=== PATIENT | female | born 1960 | race Caucasian/White ===

== ENCOUNTER 2018-07-30 10:41 | Emergency (ER) | payer BC ==
[2018-07-30 11:47] LABS: HEMOGLOBIN 12.9 g/dL (12.5-16.0); MEAN CELL VOLUME 95 fl (78-100); MEAN CORPUSCULAR HEMOGLOBIN 31 pg (27-31); MEAN CORPUSCULAR HGB CONC 33 g/dL (33-37); MEAN PLATELET VOLUME 9.7 fl (7.4-10.4); PLATELET COUNT 263 K/mm3 (130-400); RED BLOOD COUNT 4.11 M/mm3 (4.10-5.30); RED CELL DISTRIBUTION WIDTH 12.3 % (11.5-14.5); WHITE BLOOD COUNT 7.9 K/mm3 (4.8-10.8)
[2018-07-30 12:00] LABS: LYMPHOCYTE 4 % (20-51); MONOCYTE 3 % (3-10); NEUTROPHILS 93 % (42-75)
[2018-07-30 12:03] LABS: PH-URINE 6.5 (5.0 - 8.0); URINE APPEARANCE CLEAR; URINE COLOR YELLOW; URINE GLUCOSE NEGATIVE (NEGATIVE); URINE KETONE NEGATIVE (NEGATIVE); URINE PROTEIN(semi-quant) TRACE mg/dL (NEGATIVE)
[2018-07-30 12:04] LABS: URINE BILIRUBIN NEGATIVE (NEGATIVE); URINE BLOOD 50 ery/uL (NEGATIVE); URINE LEUKOCYTE ESTERASE TRACE (NEGATIVE); URINE MUCUS PRESENT (NOT PRESENT); URINE NITRATE POSITIVE (NEGATIVE); URINE UROBILINOGEN NORMAL (NORMAL)
[2018-07-30] MEDS ORDERED: ELIQUIS5 MG PO (13:07)
[2018-07-30] MEDS ORDERED: METOPROLOL SUCC25 M1 PO (13:07)
[2018-07-30] MEDS ORDERED: MACROBID 100 M100 MG (13:10)
[2018-07-30] MEDS ORDERED: ENBREL50 MG/1 ML (13:10)
[2018-07-30] MEDS ORDERED: CEPHALEXIN500 M1 PO (15:03)
[2018-07-30] MEDS ORDERED: NORCO 325 MG-51 TA1 PO (15:03)
[2018-07-30 15:13] VITALS: BP 139/81
== END 2018-07-30 15:24 | disposition home or self-care (01) ==
LOC: ED 10:41
PROVIDERS: Family Medicine
DX: N39.0 Urinary tract infection, site not specified (principal); R51 Headache; R53.81 Other malaise; R00.0 Tachycardia, unspecified; I48.91 Unspecified atrial fibrillation; Z79.01 Long term (current) use of anticoagulants; M06.9 Rheumatoid arthritis, unspecified; Z87.19 Personal history of other diseases of the digestive system; Z79.899 Other long term (current) drug therapy
CPT/HCPCS: A4216; J0696; J7030

== ENCOUNTER → 2018-08-25 | Outpatient (CLI) | payer BC ==
[2018-07-30 15:13] VITALS: BP 139/81
[~2018-08-25] MED LIST: CEPHALEXIN500 M1 PO; ELIQUIS5 MG PO; ENBREL50 MG/1 ML; MACROBID 100 M100 MG; METOPROLOL SUCC25 M1 PO; NORCO 325 MG-51 TA1 PO
[2018-08-25 09:53] LABS: BASO # 0.1 (0.02-0.10); EOS # 0.3 (0.04-0.40); EOS % 4.1 % (1.0-5.0); HEMATOCRIT 40.5 % (37.0-47.0); HEMOGLOBIN 13.5 g/dL (12.5-16.0); LYMPH# 3.3 (1.50-4.00); MEAN CELL VOLUME 95 fl (78-100); MEAN CORPUSCULAR HEMOGLOBIN 32 pg (27-31); MEAN CORPUSCULAR HGB CONC 33 g/dL (33-37); MEAN PLATELET VOLUME 9.8 fl (7.4-10.4); MONO # 0.8 (0.20-0.80); NEU # 2.4 (1.40-6.50); PLATELET COUNT 296 K/mm3 (130-400); RED BLOOD COUNT 4.28 M/mm3 (4.10-5.30); RED CELL DISTRIBUTION WIDTH 12.7 % (11.5-14.5); WHITE BLOOD COUNT 6.8 K/mm3 (4.8-10.8)
[2018-08-25 10:08] LABS: ALBUMIN 4.5 g/dL (3.5-5.0); CALCIUM 10.2 mg/dL (8.4-10.2); POTASSIUM 4.5 mmol/L (3.6-5.0); TOTAL BILIRUBIN 0.5 mg/dL (0.2-1.3); TOTAL PROTEIN 7.8 g/dL (6.3-8.2)
[2018-08-25 11:02] LABS: ERYTHROCYTE SEDIMENTATION RATE 13 mm/hr (0-30)
[2018-08-26 23:03] LABS: C-REACTIVE PROTEIN XXX
== END ==
LOC: LAB 09:29
PROVIDERS: Internal Medicine
DX: Z00.00 Encounter for general adult medical examination without abnormal findings (principal); M06.9 Rheumatoid arthritis, unspecified; I48.91 Unspecified atrial fibrillation

== ENCOUNTER → 2018-09-01 | Outpatient (CLI) | payer BC ==
[2018-09-05 14:39] LABS: ANTI-CYC CITRULLINATED PEPT AB >250.0 U (())
== END ==
LOC: LAB 14:55
PROVIDERS: Internal Medicine
DX: M06.9 Rheumatoid arthritis, unspecified (principal)

== ENCOUNTER → 2018-09-08 | Outpatient (CLI) | payer BC ==
[2018-09-08 10:11] LABS: ALBUMIN 4.4 g/dL (3.5-5.0); CALCIUM 10.3 mg/dL (8.4-10.2); POTASSIUM 4.3 mmol/L (3.6-5.0); TOTAL BILIRUBIN 0.6 mg/dL (0.2-1.3); TOTAL PROTEIN 7.6 g/dL (6.3-8.2)
== END ==
LOC: LAB 09:43
PROVIDERS: Internal Medicine Cardiovascular Disease
DX: I10 Essential (primary) hypertension (principal); Z91.89 Other specified personal risk factors, not elsewhere classified

== ENCOUNTER 2018-11-13 00:58 | Emergency (ER) | payer BC ==
[~2018-11-13] VITALS: Ht 170.2 cm; Wt 84.1 kg
[2018-11-13] MEDS ORDERED: XARELTO20 MG PO (01:10)
[2018-11-13] MEDS ORDERED: THE MEDICINE SH20 M1 PO (01:11)
[2018-11-13] MEDS ORDERED: LOW DOSE ASPIRI81 M1 PO (01:12)
[2018-11-13] MEDS ORDERED: ENBREL50 MG/ML SQ (01:33)
[2018-11-13 02:45] LABS: EOS # 0.2 (0.04-0.40); EOS % 1.9 % (1.0-5.0); HEMATOCRIT 37.7 % (37.0-47.0); HEMOGLOBIN 12.4 g/dL (12.5-16.0); LYMPH# 2.2 (1.50-4.00); MEAN CELL VOLUME 94 fl (78-100); MEAN CORPUSCULAR HEMOGLOBIN 31 pg (27-31); MEAN CORPUSCULAR HGB CONC 33 g/dL (33-37); MEAN PLATELET VOLUME 9.7 fl (7.4-10.4); MONO # 1.2 (0.20-0.80); NEU # 6.6 (1.40-6.50); PLATELET COUNT 274 K/mm3 (130-400); RED BLOOD COUNT 4.01 M/mm3 (4.10-5.30); RED CELL DISTRIBUTION WIDTH 12.8 % (11.5-14.5); WHITE BLOOD COUNT 10.2 K/mm3 (4.8-10.8)
[2018-11-13 02:54] LABS: CALCIUM 9.7 mg/dL (8.4-10.2)
[2018-11-13 03:00] LABS: PH-URINE 5.5 (5.0 - 8.0); URINE APPEARANCE HAZY; URINE BILIRUBIN NEGATIVE (NEGATIVE); URINE BLOOD 50 ery/uL (NEGATIVE); URINE COLOR YELLOW; URINE GLUCOSE NEGATIVE (NEGATIVE); URINE KETONE NEGATIVE (NEGATIVE); URINE LEUKOCYTE ESTERASE TRACE (NEGATIVE); URINE NITRATE NEGATIVE (NEGATIVE); URINE PROTEIN(semi-quant) NEGATIVE (NEGATIVE); URINE UROBILINOGEN NORMAL (NORMAL); URINE WBC 0-1 /hpf (0-3)
[2018-11-13 03:01] LABS: URINE MUCUS PRESENT (NOT PRESENT)
[2018-11-13 03:39] LABS: ERYTHROCYTE SEDIMENTATION RATE 20 mm/hr (0-30)
[2018-11-13] MEDS ORDERED: PERCOCET 325 MG1 TA2 PO (04:05)
[2018-11-13] MEDS ORDERED: WALKER (04:05)
[2018-11-13 04:20] VITALS: BP 111/69
== END 2018-11-13 04:20 | disposition home or self-care (01) ==
LOC: ED 00:58
PROVIDERS: Family Medicine
DX: M79.671 Pain in right foot (principal); M06.9 Rheumatoid arthritis, unspecified; I48.91 Unspecified atrial fibrillation; Z79.01 Long term (current) use of anticoagulants

== ENCOUNTER → 2018-11-14 | Outpatient (CLI) | payer BC ==
[2018-11-13 04:20] VITALS: BP 111/69
[~2018-11-14] MED LIST changes: +ENBREL50 MG/ML SQ; +LOW DOSE ASPIRI81 M1 PO; +PERCOCET 325 MG1 TA2 PO; +THE MEDICINE SH20 M1 PO; +WALKER; +XARELTO20 MG PO
== END ==
LOC: RAD 08:29
DX: M16.11 Unilateral primary osteoarthritis, right hip (principal)

== ENCOUNTER → 2019-08-24 | Outpatient (CLI) | payer BC ==
[2019-08-24 09:05] LABS: ALBUMIN 4.3 g/dL (3.5-5.0); POTASSIUM 4.2 mmol/L (3.5-5.1)
[2019-08-24 09:06] LABS: CALCIUM 10.1 mg/dL (8.3-10.5)
[2019-08-24 09:07] LABS: EOS # 0.2 (0.04-0.40); EOS % 3.4 % (1.0-5.0); HEMATOCRIT 40.6 % (37.0-47.0); HEMOGLOBIN 13.2 g/dL (12.5-16.0); LYMPH# 2.4 (1.50-4.00); MEAN CELL VOLUME 100 fl (78-100); MEAN CORPUSCULAR HEMOGLOBIN 33 pg (27-31); MEAN CORPUSCULAR HGB CONC 33 g/dL (33-37); MEAN PLATELET VOLUME 9.9 fl (7.4-10.4); MONO # 0.6 (0.20-0.80); NEU # 1.8 (1.40-6.50); PLATELET COUNT 312 K/mm3 (130-400); RED BLOOD COUNT 4.06 M/mm3 (4.10-5.30); RED CELL DISTRIBUTION WIDTH 13.6 % (11.5-14.5); TOTAL PROTEIN 7.2 g/dL (6.4-8.3)
[2019-08-24 09:09] LABS: TOTAL BILIRUBIN 0.4 mg/dL (0.2-1.2)
[2019-08-24 09:14] LABS: MAGNESIUM 1.8 mg/dL (1.60-2.60)
[2019-08-24 10:37] LABS: ERYTHROCYTE SEDIMENTATION RATE 20 mm/hr (0-30)
== END ==
LOC: AMSURD 08:33
PROVIDERS: Internal Medicine
DX: Z00.00 Encounter for general adult medical examination without abnormal findings (principal); Z12.11 Encounter for screening for malignant neoplasm of colon; M06.9 Rheumatoid arthritis, unspecified; I48.91 Unspecified atrial fibrillation

== ENCOUNTER → 2019-10-11 | Day surgery (SDC) | payer BC | LOC: MSO 07:27 | DX: Z12.11 Encounter for screening for malignant neoplasm of colon (principal); R19.7 Diarrhea, unspecified; K21.9 Gastro-esophageal reflux disease without esophagitis; G47.33 Obstructive sleep apnea (adult) (pediatric); I48.91 Unspecified atrial fibrillation; M19.90 Unspecified osteoarthritis, unspecified site; Z88.1 Allergy status to other antibiotic agents; Z88.0 Allergy status to penicillin; Z79.82 Long term (current) use of aspirin; Z90.710 Acquired absence of both cervix and uterus; Z87.891 Personal history of nicotine dependence; Z90.49 Acquired absence of other specified parts of digestive tract; Z86.010 Personal history of colon polyps | CPT/HCPCS: 00813; J2704; J3010; J7120 ==

== ENCOUNTER → 2019-12-07 | Outpatient (CLI) | payer BC ==
[2019-12-07 12:15] LABS: EOS # 0.2 (0.04-0.40); EOS % 3.5 % (1.0-5.0); HEMATOCRIT 42.3 % (37.0-47.0); HEMOGLOBIN 13.6 g/dL (12.5-16.0); LYMPH# 2.5 (1.50-4.00); MEAN CELL VOLUME 99 fl (78-100); MEAN CORPUSCULAR HEMOGLOBIN 32 pg (27-31); MEAN CORPUSCULAR HGB CONC 32 g/dL (33-37); MEAN PLATELET VOLUME 9.6 fl (7.4-10.4); MONO # 0.7 (0.20-0.80); NEU # 2.8 (1.40-6.50); PLATELET COUNT 294 K/mm3 (130-400); RED BLOOD COUNT 4.26 M/mm3 (4.10-5.30); RED CELL DISTRIBUTION WIDTH 13.4 % (11.5-14.5); WHITE BLOOD COUNT 6.3 K/mm3 (4.8-10.8)
[2019-12-07 12:17] LABS: ALBUMIN 4.3 g/dL (3.5-5.0); POTASSIUM 4.3 mmol/L (3.5-5.1)
[2019-12-07 12:18] LABS: CALCIUM 9.8 mg/dL (8.3-10.5)
[2019-12-07 12:19] LABS: TOTAL PROTEIN 7.5 g/dL (6.4-8.3)
[2019-12-07 12:21] LABS: TOTAL BILIRUBIN 0.4 mg/dL (0.2-1.2)
[2019-12-07 13:25] LABS: ERYTHROCYTE SEDIMENTATION RATE 13 mm/hr (0-30)
[2019-12-08 15:33] LABS: ANA SCREEN with REFLEX Negative (Negative)
== END ==
LOC: LAB 10:44
PROVIDERS: Student in an Organized Health Care Education/Training Program
DX: M06.9 Rheumatoid arthritis, unspecified (principal); K90.9 Intestinal malabsorption, unspecified

== ENCOUNTER 2020-02-05 10:00 | Outpatient (RCR) | payer BC | END 2020-02-05 10:30 | disposition home or self-care (01) | LOC: PT 10:00 | DX: M70.62 Trochanteric bursitis, left hip (principal) ==

== ENCOUNTER → 2020-03-19 | Outpatient (CLI) | payer BC | LOC: MAMMO 13:36 | DX: Z12.31 Encounter for screening mammogram for malignant neoplasm of breast (principal) ==

== ENCOUNTER → 2020-06-11 | Outpatient (CLI) | payer BC ==
[2020-06-11 13:23] LABS: EOS # 0.2 (0.04-0.40); EOS % 2.3 % (1.0-5.0); HEMATOCRIT 40.3 % (37.0-47.0); HEMOGLOBIN 13.1 g/dL (12.5-16.0); LYMPH# 3.1 (1.50-4.00); MEAN CELL VOLUME 101 fl (78-100); MEAN CORPUSCULAR HEMOGLOBIN 33 pg (27-31); MEAN CORPUSCULAR HGB CONC 33 g/dL (33-37); MEAN PLATELET VOLUME 9.6 fl (7.4-10.4); MONO # 0.8 (0.20-0.80); NEU # 2.9 (1.40-6.50); PLATELET COUNT 291 K/mm3 (130-400); RED BLOOD COUNT 3.99 M/mm3 (4.10-5.30); RED CELL DISTRIBUTION WIDTH 13.3 % (11.5-14.5)
[2020-06-11 13:29] LABS: ALBUMIN 4.2 g/dL (3.5-5.0); POTASSIUM 3.9 mmol/L (3.5-5.1)
[2020-06-11 13:30] LABS: CALCIUM 9.4 mg/dL (8.3-10.5)
[2020-06-11 13:33] LABS: TOTAL BILIRUBIN 0.4 mg/dL (0.2-1.2)
[2020-06-11 14:17] LABS: ERYTHROCYTE SEDIMENTATION RATE 24 mm/hr (0-30)
== END ==
LOC: LAB 13:08
PROVIDERS: Student in an Organized Health Care Education/Training Program
DX: M05.741 Rheumatoid arthritis with rheumatoid factor of right hand without organ or systems involvement (principal); M05.742 Rheumatoid arthritis with rheumatoid factor of left hand without organ or systems involvement; Z79.899 Other long term (current) drug therapy

== ENCOUNTER → 2020-06-18 | Outpatient (CLI) | payer BC | LOC: LAB 14:23 | DX: J02.9 Acute pharyngitis, unspecified (principal); Z20.828 Contact with and (suspected) exposure to other viral communicable diseases ==

== ENCOUNTER → 2020-10-06 | Outpatient (CLI) | payer BC ==
[2020-10-06 09:54] LABS: BASO # 0.1 (0.02-0.10); EOS # 0.2 (0.04-0.40); EOS % 3.6 % (1.0-5.0); HEMATOCRIT 40.6 % (37.0-47.0); HEMOGLOBIN 13.1 g/dL (12.5-16.0); LYMPH# 2.2 (1.50-4.00); MEAN CELL VOLUME 101 fl (78-100); MEAN CORPUSCULAR HEMOGLOBIN 33 pg (27-31); MEAN CORPUSCULAR HGB CONC 32 g/dL (33-37); MONO # 0.5 (0.20-0.80); NEU # 1.9 (1.40-6.50); PLATELET COUNT 295 K/mm3 (130-400); RED BLOOD COUNT 4.03 M/mm3 (4.10-5.30); RED CELL DISTRIBUTION WIDTH 12.9 % (11.5-14.5); WHITE BLOOD COUNT 4.8 K/mm3 (4.8-10.8)
[2020-10-06 09:59] LABS: ALBUMIN 4.1 g/dL (3.5-5.0); POTASSIUM 3.8 mmol/L (3.5-5.1)
[2020-10-06 10:00] LABS: CALCIUM 9.4 mg/dL (8.3-10.5)
[2020-10-06 10:01] LABS: TOTAL PROTEIN 7.2 g/dL (6.4-8.3)
[2020-10-06 10:03] LABS: TOTAL BILIRUBIN 0.5 mg/dL (0.2-1.2)
[2020-10-06 11:08] LABS: ERYTHROCYTE SEDIMENTATION RATE 17 mm/hr (0-30)
[2020-10-06 11:35] LABS: URINE APPEARANCE HAZY; URINE COLOR YELLOW
[2020-10-06 11:36] LABS: URINE BILIRUBIN NEGATIVE (NEGATIVE); URINE BLOOD 50 ery/uL (NEGATIVE); URINE GLUCOSE NEGATIVE (NEGATIVE); URINE KETONE NEGATIVE (NEGATIVE); URINE LEUKOCYTE ESTERASE NEGATIVE (NEGATIVE); URINE MUCUS PRESENT (NOT PRESENT); URINE NITRATE NEGATIVE (NEGATIVE); URINE PROTEIN(semi-quant) 1+ mg/dL (NEGATIVE); URINE UROBILINOGEN NORMAL (NORMAL); URINE WBC 0-1 /hpf (0-3)
[2020-10-09 16:22] LABS: T3 TOTAL AMS
== END ==
LOC: LAB 09:21
PROVIDERS: Internal Medicine
DX: Z00.00 Encounter for general adult medical examination without abnormal findings (principal)

== ENCOUNTER → 2021-03-12 | Outpatient (CLI) | payer BC ==
[2021-03-12 10:49] LABS: BASO # 0.04 (0.02-0.10); EOS # 0.16 (0.04-0.40); EOS % 2.9 % (1.0-5.0); HEMATOCRIT 43.2 % (37.0-47.0); HEMOGLOBIN 14.2 g/dL (12.5-16.0); LYMPH# 2.51 (1.50-4.00); MEAN CELL VOLUME 101 fl (78-100); MEAN CORPUSCULAR HEMOGLOBIN 33 pg (27-31); MEAN CORPUSCULAR HGB CONC 33 g/dL (33-37); MEAN PLATELET VOLUME 9.5 fl (7.4-10.4); MONO # 0.53 (0.20-0.80); NEU # 2.21 (1.40-6.50); PLATELET COUNT 252 K/mm3 (130-400); RED BLOOD COUNT 4.28 M/mm3 (4.10-5.30); RED CELL DISTRIBUTION WIDTH 13.2 % (11.5-14.5); WHITE BLOOD COUNT 5.5 K/mm3 (4.8-10.8)
[2021-03-12 11:22] LABS: PROTHROMBIN TIME 9.3 SECONDS (9.0-12.0)
[2021-03-12 13:35] LABS: POTASSIUM 4.6 mmol/L (3.5-5.1)
[2021-03-12 13:36] LABS: CALCIUM 9.8 mg/dL (8.3-10.5)
[2021-03-12 13:39] LABS: TOTAL BILIRUBIN 0.5 mg/dL (0.2-1.2)
[2021-03-12 14:15] LABS: ALBUMIN 4.2 g/dL (3.5-5.0)
[2021-03-12 14:17] LABS: TOTAL PROTEIN 7.4 g/dL (6.4-8.3)
[2021-03-12 14:24] LABS: MAGNESIUM 1.72 mg/dL (1.60-2.60)
== END ==
LOC: RAD 10:21 → LAB 10:21
PROVIDERS: Internal Medicine
DX: Z01.818 Encounter for other preprocedural examination (principal); R00.1 Bradycardia, unspecified

== ENCOUNTER → 2021-03-24 | Outpatient (CLI) | payer BC | LOC: MAMMO 13:40 | DX: Z12.31 Encounter for screening mammogram for malignant neoplasm of breast (principal); N64.89 Other specified disorders of breast ==

== ENCOUNTER → 2021-04-02 | Outpatient (CLI) | payer BC | LOC: MAMMO 12:15 | DX: N60.01 Solitary cyst of right breast (principal); N64.89 Other specified disorders of breast ==

== ENCOUNTER → 2021-04-25 | Outpatient (CLI) | payer BC | LOC: LAB 13:53 | DX: N30.01 Acute cystitis with hematuria (principal) ==

== ENCOUNTER → 2021-04-28 | Outpatient (CLI) | payer BC ==
[2021-04-28 11:52] LABS: BASO # 0.04 (0.02-0.10); EOS # 0.22 (0.04-0.40); EOS % 3.9 % (1.0-5.0); HEMATOCRIT 40.6 % (37.0-47.0); HEMOGLOBIN 13.3 g/dL (12.5-16.0); LYMPH# 2.27 (1.50-4.00); MEAN CELL VOLUME 100 fl (78-100); MEAN CORPUSCULAR HEMOGLOBIN 33 pg (27-31); MEAN CORPUSCULAR HGB CONC 33 g/dL (33-37); MEAN PLATELET VOLUME 9.6 fl (7.4-10.4); MONO # 0.68 (0.20-0.80); NEU # 2.42 (1.40-6.50); PLATELET COUNT 297 K/mm3 (130-400); RED BLOOD COUNT 4.07 M/mm3 (4.10-5.30); RED CELL DISTRIBUTION WIDTH 12.9 % (11.5-14.5); WHITE BLOOD COUNT 5.7 K/mm3 (4.8-10.8)
[2021-04-28 12:14] LABS: POTASSIUM 3.9 mmol/L (3.5-5.1)
[2021-04-28 12:15] LABS: CALCIUM 10.3 mg/dL (8.3-10.5)
[2021-04-28 12:16] LABS: TOTAL PROTEIN 7.4 g/dL (6.4-8.3)
[2021-04-28 12:18] LABS: TOTAL BILIRUBIN 0.3 mg/dL (0.2-1.2)
[2021-04-28 13:08] LABS: ERYTHROCYTE SEDIMENTATION RATE 19 mm/hr (0-30)
== END ==
LOC: RAD 11:18 → LAB 11:18
PROVIDERS: Student in an Organized Health Care Education/Training Program
DX: M05.741 Rheumatoid arthritis with rheumatoid factor of right hand without organ or systems involvement (principal); M05.742 Rheumatoid arthritis with rheumatoid factor of left hand without organ or systems involvement; E55.9 Vitamin D deficiency, unspecified; M77.9 Enthesopathy, unspecified; Z79.899 Other long term (current) drug therapy

== ENCOUNTER → 2021-08-11 | Outpatient (CLI) | payer BC ==
[2021-08-11 13:24] LABS: BASO # 0.04 K/mm3 (0.02-0.10); EOS # 0.13 K/mm3 (0.04-0.40); HEMATOCRIT 42.6 % (37.0-47.0); HEMOGLOBIN 14.1 g/dL (12.5-16.0); LYMPH# 2.87 K/mm3 (1.50-4.00); MEAN CELL VOLUME 98 fl (78-100); MEAN CORPUSCULAR HEMOGLOBIN 33 pg (27-31); MEAN CORPUSCULAR HGB CONC 33 g/dL (33-37); MEAN PLATELET VOLUME 9.7 fl (7.4-10.4); MONO # 0.63 K/mm3 (0.20-0.80); NEU # 2.89 K/mm3 (1.40-6.50); PLATELET COUNT 297 K/mm3 (130-400); RED BLOOD COUNT 4.33 M/mm3 (4.10-5.30); RED CELL DISTRIBUTION WIDTH 12.9 % (11.5-14.5); WHITE BLOOD COUNT 6.6 K/mm3 (4.8-10.8)
[2021-08-11 13:27] LABS: ALBUMIN 4.2 g/dL (3.5-5.0)
[2021-08-11 13:29] LABS: CALCIUM 10.2 mg/dL (8.3-10.5)
[2021-08-11 13:30] LABS: TOTAL PROTEIN 7.4 g/dL (6.4-8.3)
[2021-08-11 13:32] LABS: TOTAL BILIRUBIN 0.4 mg/dL (0.2-1.2)
[2021-08-11 14:20] LABS: ERYTHROCYTE SEDIMENTATION RATE 17 mm/hr (0-30)
== END ==
LOC: LAB 12:56
PROVIDERS: Nurse Practitioner Family
DX: R22.31 Localized swelling, mass and lump, right upper limb (principal)

== ENCOUNTER 2021-09-03 12:57 | Outpatient (RCR) | payer BC | END 2021-09-21 | disposition home or self-care (01) | LOC: PT | DX: M76.61 Achilles tendinitis, right leg (principal); M76.62 Achilles tendinitis, left leg ==

== ENCOUNTER → 2021-10-08 | Outpatient (CLI) | payer BC | LOC: MAMMO 08:30 | DX: N60.01 Solitary cyst of right breast (principal) ==

== ENCOUNTER → 2021-10-30 | Outpatient (CLI) | payer BC ==
[2021-10-30 10:18] LABS: BASO # 0.05 K/mm3 (0.02-0.10); EOS # 0.19 K/mm3 (0.04-0.40); EOS % 3.3 % (1.0-5.0); HEMATOCRIT 43.7 % (37.0-47.0); HEMOGLOBIN 14.3 g/dL (12.5-16.0); LYMPH# 2.69 K/mm3 (1.50-4.00); MEAN CELL VOLUME 97 fl (78-100); MEAN CORPUSCULAR HEMOGLOBIN 32 pg (27-31); MEAN CORPUSCULAR HGB CONC 33 g/dL (33-37); MEAN PLATELET VOLUME 9.5 fl (7.4-10.4); NEU # 2.27 K/mm3 (1.40-6.50); PLATELET COUNT 289 K/mm3 (130-400); RED BLOOD COUNT 4.53 M/mm3 (4.10-5.30); WHITE BLOOD COUNT 5.8 K/mm3 (4.8-10.8)
[2021-10-30 10:29] LABS: ALBUMIN 4.1 g/dL (3.4-4.8)
[2021-10-30 10:30] LABS: POTASSIUM 4.3 mmol/L (3.5-5.1)
[2021-10-30 10:32] LABS: TOTAL PROTEIN 7.4 g/dL (6.2-8.1)
[2021-10-30 10:34] LABS: TOTAL BILIRUBIN 0.4 mg/dL (0.2-1.2)
[2021-10-30 11:53] LABS: ERYTHROCYTE SEDIMENTATION RATE 30 mm/hr (0-30)
== END ==
LOC: LAB 09:59
PROVIDERS: Student in an Organized Health Care Education/Training Program
DX: E55.9 Vitamin D deficiency, unspecified (principal); Z79.899 Other long term (current) drug therapy

== ENCOUNTER → 2022-06-16 | Outpatient (CLI) | payer BC ==
[2022-06-16 10:01] LABS: BASO # 0.03 K/mm3 (0.02-0.10); EOS # 0.23 K/mm3 (0.04-0.40); EOS % 4.6 % (1.0-5.0); HEMATOCRIT 42.4 % (37.0-47.0); HEMOGLOBIN 14.1 g/dL (12.5-16.0); LYMPH# 2.23 K/mm3 (1.50-4.00); MEAN CELL VOLUME 100 fl (78-100); MEAN CORPUSCULAR HEMOGLOBIN 33 pg (27-31); MEAN CORPUSCULAR HGB CONC 33 g/dL (33-37); MEAN PLATELET VOLUME 9.7 fl (7.4-10.4); MONO # 0.75 K/mm3 (0.20-0.80); NEU # 1.72 K/mm3 (1.40-6.50); PLATELET COUNT 255 K/mm3 (130-400); RED BLOOD COUNT 4.23 M/mm3 (4.10-5.30); RED CELL DISTRIBUTION WIDTH 13.1 % (11.5-14.5)
[2022-06-16 10:05] LABS: ALBUMIN 4.1 g/dL (3.4-4.8); POTASSIUM 4.3 mmol/L (3.5-5.1)
[2022-06-16 10:06] LABS: CALCIUM 9.7 mg/dL (8.3-10.5)
[2022-06-16 10:07] LABS: TOTAL PROTEIN 7.2 g/dL (6.2-8.1)
[2022-06-16 10:09] LABS: TOTAL BILIRUBIN 0.6 mg/dL (0.2-1.2)
== END ==
LOC: MAMMO 09:34
PROVIDERS: Internal Medicine
DX: Z12.31 Encounter for screening mammogram for malignant neoplasm of breast (principal); N64.89 Other specified disorders of breast

== ENCOUNTER → 2022-06-24 | Outpatient (CLI) | payer BC ==
[2022-06-24 13:01] LABS: URINE APPEARANCE HAZY; URINE BILIRUBIN NEGATIVE (NEGATIVE); URINE BLOOD TRACE (NEGATIVE); URINE COLOR YELLOW; URINE GLUCOSE NEGATIVE (NEGATIVE); URINE KETONE NEGATIVE (NEGATIVE); URINE LEUKOCYTE ESTERASE 1+ (NEGATIVE); URINE NITRATE NEGATIVE (NEGATIVE); URINE PROTEIN(semi-quant) TRACE (NEGATIVE); URINE UROBILINOGEN NORMAL (NORMAL)
== END ==
LOC: LAB 11:24
PROVIDERS: Internal Medicine
DX: N39.0 Urinary tract infection, site not specified (principal)

== ENCOUNTER → 2022-06-24 | Outpatient (CLI) | payer BC | LOC: MAMMO 11:20 | DX: R92.8 Other abnormal and inconclusive findings on diagnostic imaging of breast (principal); Z95.818 Presence of other cardiac implants and grafts ==

== ENCOUNTER → 2023-06-21 | Outpatient (CLI) | payer BC | LOC: MAMMO 09:28 | DX: Z12.31 Encounter for screening mammogram for malignant neoplasm of breast (principal) ==

== ENCOUNTER → 2024-01-13 | Outpatient (CLI) | payer BC ==
[~2024-01-13] MED LIST changes: +Gadoterate 20 ML VIAL IV ONE; +NS 100 ML IV ONE
== END ==
LOC: RAD 12:15
DX: M76.61 Achilles tendinitis, right leg (principal); M06.9 Rheumatoid arthritis, unspecified
CPT/HCPCS: A9575

== ENCOUNTER → 2024-01-19 | Outpatient (CLI) | payer BC ==
[~2024-01-19] MED LIST changes: -Gadoterate 20 ML VIAL IV ONE; -NS 100 ML IV ONE
[2024-03-08 10:16] LABS: ALBUMIN 4.2 g/dL (3.4-4.8); CALCIUM 10.3 mg/dL (8.3-10.5); MAGNESIUM 1.63 mg/dL (1.60-2.60); TOTAL BILIRUBIN 0.4 mg/dL (0.2-1.2); TOTAL PROTEIN 7.7 g/dL (6.2-8.1)
[2024-03-08 10:41] LABS: BASO # 0.02 K/mm3 (0.02-0.10); EOS # 0.18 K/mm3 (0.04-0.40); EOS % 2.8 % (1.0-5.0); HEMATOCRIT 45.9 % (37.0-47.0); LYMPH# 2.92 K/mm3 (1.50-4.00); MEAN CELL VOLUME 99 fl (78-100); MEAN CORPUSCULAR HEMOGLOBIN 33 pg (27-31); MEAN CORPUSCULAR HGB CONC 33 g/dL (33-37); MEAN PLATELET VOLUME 9.6 fl (7.4-10.4); MONO # 0.71 K/mm3 (0.20-0.80); NEU # 2.66 K/mm3 (1.40-6.50); PLATELET COUNT 264 K/mm3 (130-400); RED BLOOD COUNT 4.62 M/mm3 (4.10-5.30); RED CELL DISTRIBUTION WIDTH 12.3 % (11.5-14.5); WHITE BLOOD COUNT 6.5 K/mm3 (4.8-10.8)
== END ==
LOC: LAB 14:44
PROVIDERS: Internal Medicine
DX: I48.91 Unspecified atrial fibrillation (principal); K90.9 Intestinal malabsorption, unspecified; M06.9 Rheumatoid arthritis, unspecified; E78.2 Mixed hyperlipidemia; R73.9 Hyperglycemia, unspecified

== ENCOUNTER → 2024-02-02 | Outpatient (CLI) | payer BC | LOC: LAB 09:50 | DX: N39.0 Urinary tract infection, site not specified (principal) ==

== ENCOUNTER → 2024-03-06 | Outpatient (CLI) | payer BC ==
[2024-03-06 18:40] LABS: URINE APPEARANCE SLIGHTLY CLOUDY (CLEAR); URINE BILIRUBIN NEGATIVE (NEGATIVE); URINE BLOOD 2+ (NEGATIVE); URINE COLOR YELLOW (YELLOW); URINE GLUCOSE NEGATIVE (NEGATIVE); URINE KETONE NEGATIVE (NEGATIVE); URINE LEUKOCYTE ESTERASE 1+ (NEGATIVE); URINE NITRATE NEGATIVE (NEGATIVE); URINE PROTEIN(semi-quant) 2+ (NEGATIVE)
[2024-03-06 18:48] LABS: URINE WBC >50 /hpf (0-3)
[2024-03-06 18:49] LABS: URINE MUCUS PRESENT (NOT PRESENT)
== END ==
LOC: LAB 18:24
PROVIDERS: Internal Medicine
DX: N39.0 Urinary tract infection, site not specified (principal)

== ENCOUNTER → 2024-03-30 | Outpatient (CLI) | payer BC ==
[2024-03-30 09:21] LABS: ALBUMIN 4.1 g/dL (3.4-4.8)
[2024-03-30 09:22] LABS: CALCIUM 10.3 mg/dL (8.3-10.5)
[2024-03-30 09:24] LABS: TOTAL PROTEIN 7.2 g/dL (6.2-8.1)
[2024-03-30 09:25] LABS: TOTAL BILIRUBIN 0.7 mg/dL (0.2-1.2)
== END ==
LOC: LAB 08:52
PROVIDERS: Internal Medicine
DX: E78.2 Mixed hyperlipidemia (principal)

== ENCOUNTER → 2024-06-21 | Outpatient (CLI) | payer BC | LOC: MAMMO 08:28 | DX: Z12.31 Encounter for screening mammogram for malignant neoplasm of breast (principal) ==

== ENCOUNTER → 2024-07-31 | Outpatient (CLI) | payer BC ==
[2024-07-31 15:16] LABS: BASO # 0.02 K/mm3 (0.02-0.10); EOS # 0.15 K/mm3 (0.04-0.40); EOS % 2.5 % (1.0-5.0); HEMATOCRIT 44.1 % (37.0-47.0); LYMPH# 3.08 K/mm3 (1.50-4.00); MEAN CELL VOLUME 96 fl (78-100); MEAN CORPUSCULAR HEMOGLOBIN 33 pg (27-31); MEAN CORPUSCULAR HGB CONC 34 g/dL (33-37); MEAN PLATELET VOLUME 9.7 fl (7.4-10.4); NEU # 2.26 K/mm3 (1.40-6.50); PLATELET COUNT 263 K/mm3 (130-400); RED BLOOD COUNT 4.62 M/mm3 (4.10-5.30); RED CELL DISTRIBUTION WIDTH 11.9 % (11.5-14.5)
[2024-07-31 15:26] LABS: ALBUMIN 4.4 g/dL (3.4-4.8)
[2024-07-31 15:27] LABS: CALCIUM 11.4 mg/dL (8.3-10.5)
[2024-07-31 15:28] LABS: TOTAL PROTEIN 7.7 g/dL (6.2-8.1)
[2024-07-31 15:30] LABS: TOTAL BILIRUBIN 0.8 mg/dL (0.2-1.2)
[2024-07-31 15:35] LABS: MAGNESIUM 1.28 mg/dL (1.60-2.60)
== END ==
LOC: LAB 15:01
PROVIDERS: Internal Medicine
DX: I48.91 Unspecified atrial fibrillation (principal); K90.9 Intestinal malabsorption, unspecified; E78.2 Mixed hyperlipidemia; R73.9 Hyperglycemia, unspecified

== ENCOUNTER → 2024-09-24 | Outpatient (CLI) | payer BC | LOC: MAMMO 13:30 → RAD 13:30 | DX: Z13.820 Encounter for screening for osteoporosis (principal); M85.80 Other specified disorders of bone density and structure, unspecified site ==

== ENCOUNTER → 2024-09-27 | Outpatient (CLI) | payer BC ==
[2024-09-27 13:10] LABS: CALCIUM 10.4 mg/dL (8.3-10.5)
[2024-09-27 13:17] LABS: MAGNESIUM 1.35 mg/dL (1.60-2.60)
== END ==
LOC: LAB 12:18
PROVIDERS: Internal Medicine
DX: E83.52 Hypercalcemia (principal); E83.42 Hypomagnesemia

== ENCOUNTER 2024-11-02 13:03 | Emergency (ER) | payer BC ==
[~2024-11-02] VITALS: Ht 12.8 cm; Wt 90.0 kg
[2024-11-02] MEDS ORDERED: PANTOPRAZOLE SO40 MG PO (13:36)
[2024-11-02] MEDS ORDERED: FLECAINIDE ACET50 MG PO (13:37)
[2024-11-02] MEDS ORDERED: SLOW-MAG 106 MG1 ECT PO (13:38)
[2024-11-02] MEDS ORDERED: CLIMARA1 EAC1 TD (13:38)
[2024-11-02 13:46] LABS: BASO # 0.02 K/mm3 (0.02-0.10); EOS # 0.07 K/mm3 (0.04-0.40); EOS % 0.7 % (1.0-5.0); HEMATOCRIT 46.7 % (37.0-47.0); HEMOGLOBIN 15.7 g/dL (12.5-16.0); LYMPH# 2.88 K/mm3 (1.50-4.00); MEAN CELL VOLUME 94 fl (78-100); MEAN CORPUSCULAR HEMOGLOBIN 32 pg (27-31); MEAN CORPUSCULAR HGB CONC 34 g/dL (33-37); MEAN PLATELET VOLUME 9.8 fl (7.4-10.4); MONO # 1.13 K/mm3 (0.20-0.80); NEU # 5.25 K/mm3 (1.40-6.50); PLATELET COUNT 271 K/mm3 (130-400); RED BLOOD COUNT 4.97 M/mm3 (4.10-5.30); RED CELL DISTRIBUTION WIDTH 12.2 % (11.5-14.5); WHITE BLOOD COUNT 9.4 K/mm3 (4.8-10.8)
[2024-11-02 13:53] LABS: ALBUMIN 4.2 g/dL (3.4-4.8)
[2024-11-02 13:54] LABS: SODIUM 138 mmol/L (136-145)
[2024-11-02 13:55] LABS: CALCIUM 10.9 mg/dL (8.3-10.5)
[2024-11-02 13:56] LABS: GLUCOSE 113 mg/dL (65-105); TOTAL PROTEIN 8.5 g/dL (6.2-8.1)
[2024-11-02 13:57] LABS: CARBON DIOXIDE 22 mmol/L (23-31)
[2024-11-02 13:58] LABS: TOTAL BILIRUBIN 0.6 mg/dL (0.2-1.2)
[2024-11-02 14:01] LABS: AST-SGOT 23 U/L (5-34)
[2024-11-02 14:02] LABS: ALT/SGPT 17 U/L (0-55)
[2024-11-02 14:03] LABS: D-DIMER 0.4 mg/L FEU (0.15-0.50)
[2024-11-02 14:10] LABS: TROPONIN-I < 0.030 ng/mL (0.00-0.033)
[2024-11-02] MEDS ORDERED: Ketorolac 30 MG/ML VIAL IV ONE (14:30)
[2024-11-02] MEDS ORDERED: tiZANidine 4 MG TABLET PO ONE (14:30)
[2024-11-02 15:26] LABS: URINE WBC 0 /hpf (0-3)
[2024-11-02] MEDS ORDERED: TIZANIDINE HYDRO4 MG PO (15:31)
[2024-11-02 15:34] LABS: URINE APPEARANCE CLEAR (CLEAR); URINE BILIRUBIN NEGATIVE (NEGATIVE); URINE BLOOD 1+ (NEGATIVE); URINE COLOR YELLOW (YELLOW); URINE GLUCOSE NEGATIVE (NEGATIVE); URINE KETONE NEGATIVE (NEGATIVE); URINE LEUKOCYTE ESTERASE NEGATIVE (NEGATIVE); URINE NITRATE NEGATIVE (NEGATIVE); URINE PROTEIN(semi-quant) NEGATIVE (NEGATIVE)
[2024-11-02 16:14] VITALS: BP 107/69
[2024-11-03] MEDS ORDERED: ROSUVASTATIN CAL5 MG PO (22:03)
[2024-11-03] MEDS ORDERED: PREDNISONE20 M1 PO (23:33)
[2024-11-03] MEDS ORDERED: PERCOCET 325 MG1 TA2 PO (23:33)
== END 2024-11-02 16:17 | disposition home or self-care (01) ==
LOC: ED 13:03
PROVIDERS: Family Medicine
DX: M54.6 Pain in thoracic spine (principal); Z79.01 Long term (current) use of anticoagulants; Z79.82 Long term (current) use of aspirin; Z87.891 Personal history of nicotine dependence
CPT/HCPCS: J1885; J7120

== ENCOUNTER 2024-11-03 21:46 | Emergency (ER) | payer BC ==
[~2024-11-03] VITALS: Ht 170.2 cm; Wt 94.8 kg
[~2024-11-03 21:46] MED LIST changes: +CLIMARA1 EAC1 TD; +FLECAINIDE ACET50 MG PO; +PANTOPRAZOLE SO40 MG PO; +SLOW-MAG 106 MG1 ECT PO; +TIZANIDINE HYDRO4 MG PO
[2024-11-03] MEDS ORDERED: ROSUVASTATIN CAL5 MG PO (22:03)
[2024-11-03] MEDS ORDERED: Ketorolac 30 MG/ML VIAL IV ONE (22:30)
[2024-11-03] MEDS ORDERED: Acetaminophen 325 MG TAB PO ONE (22:30)
[2024-11-03 22:36] LABS: BASO # 0.01 K/mm3 (0.02-0.10); EOS # 0.03 K/mm3 (0.04-0.40); EOS % 0.3 % (1.0-5.0); HEMATOCRIT 43.4 % (37.0-47.0); HEMOGLOBIN 14.8 g/dL (12.5-16.0); LYMPH# 2.53 K/mm3 (1.50-4.00); MEAN CELL VOLUME 95 fl (78-100); MEAN CORPUSCULAR HEMOGLOBIN 32 pg (27-31); MEAN CORPUSCULAR HGB CONC 34 g/dL (33-37); MEAN PLATELET VOLUME 9.9 fl (7.4-10.4); MONO # 1.13 K/mm3 (0.20-0.80); NEU # 6.56 K/mm3 (1.40-6.50); PLATELET COUNT 266 K/mm3 (130-400); RED BLOOD COUNT 4.57 M/mm3 (4.10-5.30); RED CELL DISTRIBUTION WIDTH 12.3 % (11.5-14.5); WHITE BLOOD COUNT 10.3 K/mm3 (4.8-10.8)
[2024-11-03 22:41] LABS: CALCIUM 10.7 mg/dL (8.3-10.5)
[2024-11-03] MEDS ORDERED: PREDNISONE20 M1 PO (23:33)
[2024-11-03] MEDS ORDERED: PERCOCET 325 MG1 TA2 PO (23:33)
[2024-11-03] MEDS ORDERED: Home oxyCODONE/Acetaminophen 5/325 MG #4 TAB/PACK PO ONE (23:45)
[2024-11-03 23:50] VITALS: BP 123/80
== END 2024-11-03 23:50 | disposition home or self-care (01) ==
LOC: ED 21:46
PROVIDERS: Family Medicine
DX: M79.18 Myalgia, other site (principal)
CPT/HCPCS: J1885